=== PATIENT | male | born 1955 | race Two or more races ===

== ENCOUNTER 2016-10-30 16:59 | Observation (INO) | payer MEDICAID ==
[~2016-10-30] VITALS: Ht 170.2 cm; Wt 83.6 kg
--- NOTE | ~2016-10-30 | CON ---
PATIENT'S NAME: CARLITOS GREENE [facility] AGE: 61 Y [address] ROOM: [place] [address] LOCATION: GPCU ADMIT DATE: 10/30/2016 Consultation DISCHARGE DATE: 10/31/2016 FAMILY PHYSICIAN: Roverto Snell MD ATTENDING PHYSICIAN: Fidel Nguyen DATE OF CONSULTATION: 10/31/2016 REFERRING PHYSICIAN: Jonathon Bender MD This is a [facility] Nephrology Consultation. REASON FOR CONSULTATION: History of end-stage renal disease, on hemodialysis therapy. HISTORY OF PRESENT ILLNESS: This is a 61-year-old male patient, who is well known to Dr. Bender, who presented to the emergency room in [place] earlier today after having presyncope type episodes while at home. He has end-stage renal disease. The patient with a longstanding history of diabetes, on hemodialysis Monday, , Monday. The patient reported he had been sitting at home for a while in his chair when he attempted to get up and felt dizzy and lightheaded. He feels that he has been working out in the sun and had been in the hot weather over the weekend and this contributed to this. The patient is due for hemodialysis Monday, , and Monday. At this time, Dr. Burgess has been consulted on the patient to manage his end-stage renal disease and hemodialysis. PAST MEDICAL HISTORY: As listed above includin. End-stage renal disease, on hemodialysis Monday, , Monday. 2. Type 2 diabetes. 3. Essential hypertension. 4. Hyperlipidemia. 5. Tobacco abuse. FAMILY HISTORY: Significant for diabetes in both parents. SOCIAL HISTORY: The patient does smoke half a pack to a pack a day for multiple years. Denies any alcohol or illicit drug use. REVIEW OF SYSTEMS: Please see HPI. All other systems have been reviewed and are negative except PATIENT'S NAME: CARLITOS GREENE [facility] AGE: 61 Y [address] ROOM: [address] [address] LOCATION: GPCU ADMIT DATE: 10/30/2016 Consultation DISCHARGE DATE: 10/31/2016 FAMILY PHYSICIAN: Roverto Snell MD ATTENDING PHYSICIAN: Fidel Nguyen as described in the HPI. PHYSICAL EXAMINATION: VITAL SIGNS: Blood pressure 105/62, temperature is 97.3, heart rate is 54, saturations 95% on 3 L of oxygen, and respiratory rate is 18. GENERAL: On exam, this is an alert, oriented, male, who appears his approximate stated age, he is in no acute distress. HEENT: Head: Normocephalic and atraumatic. Eyes: Pupils are equal and react briskly to light and accommodation. EOMs are intact. Nose: Midline. Mouth: No gingival bleeding. LUNGS: Lung sounds are clear to auscultation anteriorly and posteriorly. CARDIOVASCULAR: Regular rate and rhythm with no appreciable murmurs, rubs, or thrills. ABDOMEN: Soft, nontender, and nondistended. Bowel sounds are positive. EXTREMITIES: Show no signs of peripheral edema, clubbing, or cyanosis. Cranial nerves II through XII are grossly intact. 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 LABORATORY DATA: WBCs 3.1, hemoglobin 9.3, hematocrit 28.0, and platelets 83. Glucose 367, BUN is 68, creatinine 7.6, sodium 133, potassium 4.9, CO2 is 22, calcium 7.3, albumin 2.7, and phos is 5.2. ASSESSMENT AND PLAN: 1. End-stage renal disease, on hemodialysis therapy. We will obtain the patient's outpatient clinical record at this time. The patient is now due for hemodialysis today and we will follow if the patient is still hospitalized on Monday, , and Monday. He does not appear to be volume overloaded nor is grossly uremic. Further recommendations will be forthcoming. 2. Presyncopal event. Per hospitalist, this is likely secondary to dehydration. The patient is feeling better today. Further recommendations per hospitalist. 3. Diabetes. Continue current medications. 4. Hypertension. Continue current medications. 5. Hyperlipidemia. Continue current medications. 6. Tobacco abuse. Tobacco cessation was recommended. This patient has been seen and assessed by Dr. Burgess. His care is being conducted in consultation with Dr. Burgess as well as me. We will plan further recommendations as they are forthcoming. PATIENT'S NAME: CARLITOS GREENE [facility] AGE: 61 Y [address] ROOM: [place] [address] [facility] ADMIT DATE: 10/30/2016 Consultation DISCHARGE DATE: 10/31/2016 FAMILY PHYSICIAN: Roverto Snell MD ATTENDING PHYSICIAN: Fidel Nguyen, SANTANA, [employer] DONATO/modl /[id number] d: 11/02/[id number] t: 11/07/16910, CONSULTATION REPORT
--- NOTE | ~2016-10-30 | HP ---
PATIENT'S NAME: CARLITOS GREENE [facility] AGE: 61 Y [address] ROOM: [place] [address] LOCATION: GPCU ADMIT DATE: 10/30/2016 History & Physical DISCHARGE DATE: FAMILY PHYSICIAN: PHYSICIAN, UNKNOWN ATTENDING PHYSICIAN: JOSE BRANCH DATE OF SERVICE: CHIEF COMPLAINT: Presyncope, hypoxia. HISTORY OF PRESENT ILLNESS: This is a 61-year-old male with a history of diabetes, end-stage renal disease, on hemodialysis on Monday, , Monday schedule presented to the emergency room at [place] earlier today after having presyncope type episodes while at home. The patient reports that he had been sitting for a while in a chair on his porch at home and while he attempted to get up from a seated position, he felt dizzy and lightheaded and noticed vision changes and almost fell, but the people around noticed and helped him gather himself and get him home. The patient at that point checked his blood sugar and blood sugars were good. The patient also tells me that he had been having watery loose stools over the past 2 days and he has had up to 3 episodes of it in today. Denies any abdominal pain, nausea, or vomiting. Also, denies any recent travel, sick contact, or antibiotics use. The patient also denies any subjective shortness of breath or cough. Denies any unilateral weakness, just reports that he feels weak overall. PAST MEDICAL HISTORY: 1. End-stage renal disease, on hemodialysis. 2. Type 2 diabetes. 3. Essential hypertension. 4. Hyperlipidemia. 5. Tobacco abuse. FAMILY HISTORY: The patient has history of diabetes in both parents. SOCIAL HISTORY: The patient smokes about half-a-pack to a pack-a-day and he has been doing so for a long time. Denies any alcohol or drug use. REVIEW OF SYSTEMS: All the systems have been reviewed and were negative except as described in the HPI. PATIENT'S NAME: CARLITOS GREENE [facility] AGE: 61 Y [address] ROOM: [place] [address] LOCATION: GPCU ADMIT DATE: 10/30/2016 History & Physical DISCHARGE DATE: FAMILY PHYSICIAN: PHYSICIAN, UNKNOWN ATTENDING PHYSICIAN: JOSE BRANCH PHYSICAL EXAMINATION: VITAL SIGNS: Blood pressure 105/62, temperature 97.3, heart rate 54, saturating 95% on 3 L of oxygen, and respiratory rate 18. GENERAL: The patient is lethargic, but awake, alert, and oriented x3. Slurred speech, but this is not new. HEENT: Dry mucosal membranes, but no conjunctival pallor or scleral icterus noted. SKIN: Without rash or lesions. HEART: S1, S2. Regular rate and rhythm. Heart rate in the 50s. CHEST: Clear to auscultation bilaterally. ABDOMEN: Soft, nontender, nondistended with good bowel sounds. MUSCULOSKELETAL: No joint tenderness, pain, or swelling noted. NEURO: No new focal neurological deficits noted. The patient has residual slurring of speech from a previous stroke. ASSESSMENT AND PLAN: 1. Presyncope. This is likely related to dehydration and hypovolemia. The patient report having multiple diarrhea episodes over the past 2 days. Noting that he has end-stage renal disease, we will give him fluid gently and check orthostatics in the morning. I will hold all of his blood pressure medications in the meantime. 2. Acute diarrhea. This is of 2 days history. We will check stool for C. diff since he is high-risk due to his end-stage renal disease status. 3. Hypoxia. The patient requiring 2-3 L of supplemental oxygen. Not on oxygen at home. We will repeat a chest x-ray; however, does not appear to have any symptoms to suggest an infectious process. We will reevaluate the need for antibiotics at this point. 4. Essential hypertension. The patient on the hypotensive side. I will hold all of his blood pressure medications currently. 5. End-stage renal disease. I will consult Nephrology in case he would have dialysis need during his hospital stay. The patient sees Dr. Bender as outpatient. 6. Tobacco abuse. Discussed with the patient the need for tobacco cessation. 7. Deep vein thrombosis prophylaxis. We will use subcutaneous heparin t.i.d. MD RADHA QUINONES/rose PATIENT'S NAME: CARLITOS GREENE [facility] AGE: 61 Y [address] ROOM: [address] [address] LOCATION: [facility] ADMIT DATE: 10/30/2016 History & Physical DISCHARGE DATE: FAMILY PHYSICIAN: PHYSICIAN, UNKNOWN ATTENDING PHYSICIAN: JOSE BRANCH /[id number]: [id number] T: [id number] HISTORY & PHYSICAL
[~2016-10-30 16:59] MED LIST: ASPIRIN LO-DOSE81 MG PO; BENADRYL25 MG PO; COREG25 MG PO; DRISDOL 5050000 UNIT PO; GEODON80 MG PO; GLUCAGON/GLUCAGE1 MG SUB-Q; GLUCOSE4 GM PO; HUMALOG100 UNIT/1 SUB-Q; ISORDIL20 MG PO; KLONOPIN1 M1 PO; LAMICTAL200 MG PO; LANTUS100 UNIT/1 SUB-Q; LASIX80 MG PO; LOPRESSOR25 MG PO; NORVASC10 MG PO; SEROQUEL100 MG PO; TRICOR145 MG PO
[2016-10-30] MEDS ORDERED: ZYPREXA2.5 MG PO (19:12)
[2016-10-30] MEDS ORDERED: PHOSLO667 MG PO (19:13)
[2016-10-30 20:07] LABS: EOSINOPHIL % 0.3 %; HEMATOCRIT 28.8 % (37.0-53.0); HEMOGLOBIN 9.6 g/dL (12.0-17.0); IMMATURE GRANULOCYTE % 0.3 %; LYMPHOCYTE # 0.6 K/uL (0.8-4.0); LYMPHOCYTE % 19.8 %; MCH 32.7 pg (27.0-34.0); MCHC 33.3 gm/dL (32.0-36.5); MONOCYTE # 0.1 K/uL (0.0-1.0); MONOCYTE % 2.2 %; MPV 11.2 fl (9.4-12.4); NEUTROPHIL # (ANC) 2.4 K/uL (1.4-9.0); NEUTROPHIL % 77.4 %; NRBC % 0 /100WBC (0-0.00); PLATELET COUNT 87 K/uL (150-450); WBC 3.1 K/uL (4.0-11.0)
[2016-10-30 20:09] LABS: RBC 2.94 M/uL (4.00-6.00)
[2016-10-30 20:17] LABS: ANION GAP 15.6 (10.0-19.0); CALCIUM 7.5 mg/dL (8.5-10.5); MAGNESIUM 2.5 mg/dL (1.8-2.6); POTASSIUM 4.6 mMol/L (3.7-5.1)
[2016-10-30 20:21] LABS: CREATININE 7.4 mg/dL (0.6-1.3)
[2016-10-31 06:31] LABS: HEMOGLOBIN 9.3 g/dL (12.0-17.0); IMMATURE GRANULOCYTE % 0.7 %; LYMPHOCYTE # 0.5 K/uL (0.8-4.0); LYMPHOCYTE % 16.6 %; MCH 32.9 pg (27.0-34.0); MCHC 33.2 gm/dL (32.0-36.5); MCV 98.9 fl (83.0-98.0); MONOCYTE # 0.1 K/uL (0.0-1.0); MONOCYTE % 3.6 %; MPV 11.1 fl (9.4-12.4); NEUTROPHIL # (ANC) 2.4 K/uL (1.4-9.0); NEUTROPHIL % 79.1 %; NRBC % 0 /100WBC (0-0.00); PLATELET COUNT 83 K/uL (150-450); RBC 2.83 M/uL (4.00-6.00); RDW-CV 12.7 % (11.9-14.6); WBC 3.1 K/uL (4.0-11.0)
[2016-10-31 06:52] LABS: ALBUMIN 2.7 gm/dL (3.5-5.0); ANION GAP 15.9 (10.0-19.0); MAGNESIUM 2.5 mg/dL (1.8-2.6); PHOSPHORUS 5.2 mg/dL (2.5-4.9); POTASSIUM 4.9 mMol/L (3.7-5.1)
[2016-10-31 06:53] LABS: CALCIUM 7.3 mg/dL (8.5-10.5); CREATININE 7.6 mg/dL (0.6-1.3)
[2016-10-31] MEDS ORDERED: ZITHROMAX250 MG PO (18:16)
== END 2016-10-31 20:35 | disposition disaster alternative care site (69) ==
LOC: GPCU 18:23
PROVIDERS: ADMIT Internal Medicine
DX: R55 Syncope and collapse (principal); R09.02 Hypoxemia; R19.7 Diarrhea, unspecified; R06.02 Shortness of breath; E11.22 Type 2 diabetes mellitus with diabetic chronic kidney disease; I12.0 Hypertensive chronic kidney disease with stage 5 chronic kidney disease or end stage renal disease; N18.6 End stage renal disease; E78.5 Hyperlipidemia, unspecified; F17.210 Nicotine dependence, cigarettes, uncomplicated; Z99.2 Dependence on renal dialysis; Z72.0 Tobacco use; Z79.899 Other long term (current) drug therapy
CPT/HCPCS: G0378; J1644; J7030